=== PATIENT | male | born 1955 | race Caucasian/White ===

== ENCOUNTER 2019-02-01 23:43 | Observation (INO) | payer MEDICARE ==
[~2019-02-01] VITALS: Ht 180.3 cm; Wt 81.7 kg
[2019-02-02] MEDS ORDERED: CARB200T4 PO (00:07)
[2019-02-02] MEDS ORDERED: LEVE500T53 PO (00:07)
[2019-02-02] MEDS ORDERED: FOLI-17 PO (00:07)
[2019-02-02] MEDS ORDERED: AMLO-150 PO (00:07)
[2019-02-02] MEDS ORDERED: METO50TA82 PO (00:07)
[2019-02-02] MEDS ORDERED: METOPROLOL TARTRATE 50 MG TABLET ONE (00:27)
[2019-02-02] MEDS ORDERED: METOPROLOL TARTRATE 50 MG TABLET PO ONE (00:30)
--- NOTE | 2019-02-02 01:05 | NUR ---
TASK RN: PT S[place]ING [place] IN [place], AWAKE/ALERT; PWD. DENIES PAIN/NEED FOR PAIN MEDICATIONS. AFIB ON MONITOR, HR 84-104. BP/SPO2/ECG MONITORING IN PLACE.
[2019-02-02] MEDS ORDERED: hydrALAzine 20 MG/ML, 1ML IVPush PRN (01:30)
[2019-02-02] MEDS ORDERED: morphine SULFATE 10 MG/ML, 1ML IVPush PRN (01:30)
[2019-02-02] MEDS ORDERED: BISACODYL 10 MG SUPP PR PRN (01:30)
[2019-02-02] MEDS ORDERED: DOCUSATE 100 MG CAPSULE PO PRN (01:30)
[2019-02-02] MEDS ORDERED: ONDANSETRON 2MG/ML, 2ML IVPush PRN (01:30)
[2019-02-02] MEDS ORDERED: ONDANSETRON ODT 4 MG PO PRN (01:30)
[2019-02-02] MEDS ORDERED: PROMETHAZINE 25 MG/ML, 1ML IM PRN (01:30)
[2019-02-02] MEDS ORDERED: ACETAMINOPHEN 325 MG TABLET PO PRN (01:30)
[2019-02-02] MEDS ORDERED: POLYETHYLENE GLYCOL 17 GM PACKET PO PRN (01:30)
[2019-02-02] MEDS ORDERED: OXYcodone IR 5MG TABLET PO PRN (01:30)
[2019-02-02 02:09] VITALS: BP 119/78
[2019-02-02 02:15] LABS: FREE T4 (FREE THYROXINE) 0.87 ng/dL (0.76-1.46); THYROID STIMULATING HORMONE 2.12 mIU/L (0.358-3.740)
[2019-02-02] MEDS: SODIUM CHLORIDE 0.9% 1,000 ML IV SCH ×3 (02:38→22:55)
[2019-02-02] MEDS: ATORVASTATIN 20 MG TABLET PO SCH ×2 (02:38→20:56)
[2019-02-02] MEDS: HEPARIN 5,000 UNITS/ML, 1ML SQ SCH ×3 (02:38→17:08)
[2019-02-02 02:48] LABS: HEMOGLOBIN A1C 5.3 % (4.2-6.3)
[2019-02-02] MEDS: ASPIRIN 325 MG TABLET EC PO SCH (06:08)
[2019-02-02 06:30] VITALS: BP 103/68
[2019-02-02 07:17] LABS: BASOPHILS # (AUTO) 0.02 x10^3/uL (0-0.1); BASOPHILS % (AUTO) 1 % (0-1); EOSINOPHILS % (AUTO) 2 % (1-7); LYMPHOCYTES # (AUTO) 1.67 x10^3/uL (1-3.4); LYMPHOCYTES % (AUTO) 31 % (22-44); MD NO; MEAN CORPUSCULAR HGB CONC 32.4 g/dL (33.2-36.2); MEAN CORPUSCULAR VOLUME 92.6 fL (81-97); MEAN PLATELET VOLUME 8.3 fL (7.4-10.4); MONOCYTES # (AUTO) 0.47 x10^3/uL (0.2-0.8); MONOCYTES % (AUTO) 9 % (2-9); NEUTROPHILS # (AUTO) 3.06 x10^3/uL (1.8-6.8); NEUTROPHILS % (AUTO) 57 % (42-75); PLATELET COUNT 155 x10^3/uL (130-400); RED BLOOD COUNT 4.45 x10^6/uL (4.38-5.82); RED CELL DISTRIBUTION WIDTH 14.1 % (9.4-14.8)
[2019-02-02 07:28] LABS: ALBUMIN 3.2 g/dL (3.4-5.0); ANION GAP 7 mmol/L (5-15); CALCIUM 8.2 mg/dL (8.5-10.1); CHLORIDE 111 mmol/L (98-107)
[2019-02-02 07:32] LABS: ALANINE AMINOTRANSFERASE 21 U/L (12-78); ALKALINE PHOSPHATASE 99 U/L (45-117); BILIRUBIN,TOTAL 0.5 mg/dL (0.2-1.0); CHOL/HDL RATIO 4.3; CHOLESTEROL, TOTAL 145 mg/dL (140-239); CREATININE 0.81 mg/dL (0.7-1.3); HDL CHOL % 23 % (26-37); HDL CHOLESTEROL (DIRECT) 34 mg/dL (40-60); LDL CHOLESTEROL,CALCULATED 93 mg/dL (54-169); LDL/HDL RATIO 2.7 (0.5-3.0); TOTAL PROTEIN 6.6 g/dL (6.4-8.2); TRIGLYCERIDES 91 mg/dL (50-200); VLDL CHOLESTEROL 18 mg/dL (0-25)
[2019-02-02] MEDS: CARBAMAZEPINE 200 MG TABLET PO SCH ×2 (09:18→20:56)
[2019-02-02] MEDS: LEVETIRACETAM 500 MG TABLET PO SCH ×2 (09:18→20:56)
[2019-02-02] MEDS: METOPROLOL TARTRATE 50 MG TABLET PO SCH (09:18)
[2019-02-02] MEDS: FOLIC ACID 1 MG TABLET PO SCH (09:18)
[2019-02-02] MEDS: AMLODIPINE 5 MG TABLET PO SCH (09:18)
[2019-02-02 15:17] LABS: MICROSCOPIC NOT IND
[2019-02-02 15:25] LABS: CULTURE INDICATED? NO
[2019-02-02 15:29] VITALS: BP 113/81
[2019-02-02 18:23] VITALS: BP 117/83
[2019-02-03] VITALS (7 sets, daily range): BP systolic 108–144; BP diastolic 71–99
[2019-02-03] MEDS: HEPARIN 5,000 UNITS/ML, 1ML SQ SCH ×3 (01:23→17:36)
[2019-02-03] MEDS: ASPIRIN 325 MG TABLET EC PO SCH (05:54)
[2019-02-03] MEDS: AMLODIPINE 5 MG TABLET PO SCH (10:04)
[2019-02-03] MEDS: METOPROLOL TARTRATE 50 MG TABLET PO SCH (10:04)
[2019-02-03] MEDS: FOLIC ACID 1 MG TABLET PO SCH (10:04)
[2019-02-03] MEDS: CARBAMAZEPINE 200 MG TABLET PO SCH ×2 (10:04→20:22)
[2019-02-03] MEDS: LEVETIRACETAM 500 MG TABLET PO SCH ×2 (10:04→20:23)
[2019-02-03] MEDS: SODIUM CHLORIDE 0.9% 1,000 ML IV SCH (10:08)
[2019-02-03] MEDS: ATORVASTATIN 20 MG TABLET PO SCH (20:22)
[2019-02-04] MEDS: HEPARIN 5,000 UNITS/ML, 1ML SQ SCH ×3 (01:30→16:47)
[2019-02-04 02:58] VITALS: BP 113/72
[2019-02-04] MEDS: ASPIRIN 325 MG TABLET EC PO SCH (06:07)
[2019-02-04 07:54] VITALS: BP 131/86
[2019-02-04] MEDS: LEVETIRACETAM 500 MG TABLET PO SCH ×2 (08:12→20:19)
[2019-02-04] MEDS: CARBAMAZEPINE 200 MG TABLET PO SCH ×2 (08:12→20:19)
[2019-02-04] MEDS: FOLIC ACID 1 MG TABLET PO SCH (08:12)
[2019-02-04] MEDS: METOPROLOL TARTRATE 50 MG TABLET PO SCH (08:12)
[2019-02-04] MEDS: AMLODIPINE 5 MG TABLET PO SCH (08:12)
[2019-02-04] MEDS ORDERED: ATOR20TA37 PO (11:17)
[2019-02-04] MEDS ORDERED: ASPI-650 PO (11:17)
[2019-02-04 13:54] VITALS: BP 104/68
[2019-02-04 19:39] VITALS: BP 101/71
[2019-02-04] MEDS: ATORVASTATIN 20 MG TABLET PO SCH (20:19)
[2019-02-05 00:22] VITALS: BP 109/77
[2019-02-05] MEDS: HEPARIN 5,000 UNITS/ML, 1ML SQ SCH ×3 (01:30→17:30)
[2019-02-05] MEDS: ASPIRIN 325 MG TABLET EC PO SCH (05:47)
[2019-02-05 06:42] VITALS: BP 127/82
[2019-02-05] MEDS: FOLIC ACID 1 MG TABLET PO SCH (08:39)
[2019-02-05] MEDS: CARBAMAZEPINE 200 MG TABLET PO SCH ×2 (08:39→20:38)
[2019-02-05] MEDS: LEVETIRACETAM 500 MG TABLET PO SCH ×2 (08:39→20:38)
[2019-02-05] MEDS: AMLODIPINE 5 MG TABLET PO SCH (08:39)
[2019-02-05] MEDS: METOPROLOL TARTRATE 50 MG TABLET PO SCH (08:39)
[2019-02-05 13:37] VITALS: BP 122/88
[2019-02-05 18:55] VITALS: BP 112/78
[2019-02-05] MEDS: ATORVASTATIN 20 MG TABLET PO SCH (20:38)
[2019-02-06 01:30] VITALS: BP 120/82
[2019-02-06] MEDS: HEPARIN 5,000 UNITS/ML, 1ML SQ SCH ×2 (01:30→09:29)
[2019-02-06] MEDS: ASPIRIN 325 MG TABLET EC PO SCH (05:08)
[2019-02-06 07:28] VITALS: BP 122/88
[2019-02-06] MEDS: LEVETIRACETAM 500 MG TABLET PO SCH (09:28)
[2019-02-06] MEDS: METOPROLOL TARTRATE 50 MG TABLET PO SCH (09:28)
[2019-02-06] MEDS: CARBAMAZEPINE 200 MG TABLET PO SCH (09:28)
[2019-02-06] MEDS: FOLIC ACID 1 MG TABLET PO SCH (09:28)
[2019-02-06] MEDS: AMLODIPINE 5 MG TABLET PO SCH (09:28)
== END 2019-02-06 10:48 | disposition home or self-care (01) ==
LOC: ED 02-02 00:10 → EDIP 02-02 00:35 → INTOOBSV 02-02 00:35 → 4EST 02-02 02:26
PROVIDERS: ADMIT Internal Medicine; ATTEND Internal Medicine
DX: G95.9 Disease of spinal cord, unspecified (principal); R55 Syncope and collapse; G93.41 Metabolic encephalopathy; E43 Unspecified severe protein-calorie malnutrition; R42 Dizziness and giddiness; R53.1 Weakness; I10 Essential (primary) hypertension; G40.909 Epilepsy, unspecified, not intractable, without status epilepticus; I48.2 Chronic atrial fibrillation; D68.69 Other thrombophilia; Z79.899 Other long term (current) drug therapy
CPT/HCPCS: 36415; 70551; 80053; 80061; 80156; 81003; 83036; 83735; 84439; 84443; 85025; 93005; 93306; 93880; 96360; 96361; 96372; 97163; 97165; 99285; G0378; J1644; J7030